=== PATIENT | male | born 1980 | race Caucasian/White ===

== ENCOUNTER 2018-02-10 21:49 | Emergency (ER) | payer BC ==
[~2018-02-10] VITALS: Ht 180.3 cm; Wt 73.7 kg
[2018-02-10 21:52] VITALS: BP 145/85; PULSE 67; RESP 18; TEMP 98.3; O2SAT 98
[2018-02-10] MEDS ORDERED: LORazepam 1 MG TAB PO ONE (22:15)
[2018-02-10] MEDS ORDERED: SODIUM CHLORIDE 0.9% FLUSH 10 ML FLUSH IV FLUSH PRN (22:15)
--- NOTE | 2018-02-10 22:24 | PD ---
HPI Chief Complaint: Abdominal Pain Time Seen by Provider: 21:56 Travel History International Travel<30 days: No Contact w/Intl Traveler<30days: No Traveled to known affect area: No History of Present Illness HPI Is a 37-year-old man who presents to the emergency department complaining of anxiety, and pain in his lower abdomen. He states that his was recently diagnosed with stage III breast cancer. He has had a lot of anxiety and nervousness since then. He states that the pain is worse when he is anxious, and thinks about all the things that need to be done. Pain is worse when he is alone and when he is in bed at night. She really had this before. No urinary symptoms. No nausea or vomiting. States he does get some cramping in his hands and his legs at times. No history of kidney stones. No history of abdominal surgery. No medical history otherwise. History Past Medical History Medical History: Denies Significant Hx Tetanus Vaccination: > 5 Years Influenza Vaccination: No Social History Alcohol Use: Yes (OCCASSIONAL) Tobacco Use: No Allergies-Medications (Allergen,Severity, Reaction): Coded Allergies: No Known Allergies (Verified Adverse Reaction, Unknown, 02/10/18) Reported Meds & Prescriptions Reported Meds & Active Scripts Active Active Prescriptions or Reported Medications Unobtainable Review of Systems Except as stated in HPI: all other systems reviewed are Neg Physical Exam Narrative GENERAL: Well-appearing 37-year-old man, no acute distress. SKIN: Focused skin assessment warm/dry. HEAD: Atraumatic. Normocephalic. EYES: Pupils equal and round. No scleral icterus. No injection or drainage. ENT: No nasal bleeding or discharge. Mucous membranes pink and moist. NECK: Trachea midline. No JVD. CARDIOVASCULAR: Regular rate and rhythm. No murmur appreciated. RESPIRATORY: No accessory muscle use. Clear to auscultation. Breath sounds equal bilaterally. GASTROINTESTINAL: Abdomen soft, non-tender, nondistended. Hepatic and splenic margins not palpable. : No hernias. MUSCULOSKELETAL: No obvious deformities. No clubbing. No cyanosis. No edema. NEUROLOGICAL: Awake and alert. No obvious cranial nerve deficits. Motor grossly within normal limits. Normal speech. Data Data Last Documented VS Vital Signs Date Time Temp Pulse Resp B/P (MAP) Pulse Ox O2 Delivery O2 Flow Rate FiO2 02/10/18 23:22 63 16 113/72 (86) 99 Room Air 02/10/18 21:52 98.3 Orders Orders Complete Blood Count With Diff (02/10/18 22:12) Comprehensive Metabolic Panel (02/10/18 22:12) Lipase (02/10/18 22:12) Urinalysis - C+S If Indicated (02/10/18 22:12) Iv Access Insert/Monitor (02/10/18 22:12) Sodium Chloride 0.9% Flush (Ns Flush) (02/10/18 22:15) Lorazepam (Ativan) (02/10/18 22:15) Labs Laboratory Tests Test 02/10/18 22:43 White Blood Count 10.3 TH/MM3 Red Blood Count 5.44 MIL/MM3 Hemoglobin 16.1 GM/DL Hematocrit 47.7 % Mean Corpuscular Volume 87.6 FL Mean Corpuscular Hemoglobin 29.6 PG Mean Corpuscular Hemoglobin Concent 33.8 % Red Cell Distribution Width 11.7 % Platelet Count 207 TH/MM3 Mean Platelet Volume 9.7 FL Neutrophils (%) (Auto) 72.8 % Lymphocytes (%) (Auto) 18.6 % Monocytes (%) (Auto) 6.7 % Eosinophils (%) (Auto) 0.8 % Basophils (%) (Auto) 1.1 % Neutrophils # (Auto) 7.5 TH/MM3 Lymphocytes # (Auto) 1.9 TH/MM3 Monocytes # (Auto) 0.7 TH/MM3 Eosinophils # (Auto) 0.1 TH/MM3 Basophils # (Auto) 0.1 TH/MM3 CBC Comment DIFF FINAL Differential Comment Urine Color YELLOW Urine Turbidity CLEAR Urine pH 6.0 Urine Specific Tyler 1.020 Urine Protein NEG mg/dL Urine Glucose (UA) NEG mg/dL Urine Ketones TRACE mg/dL Urine Occult Blood TRACE Urine Nitrite NEG Urine Bilirubin NEG Urine Urobilinogen 0.2 MG/DL Urine Leukocyte Esterase NEG Urine WBC 0-2 /hpf Urine Squamous Epithelial Cells 0-5 /hpf Microscopic Urinalysis Comment CULT NOT INDICATED Blood Urea Nitrogen 16 MG/DL Creatinine 0.90 MG/DL Random Glucose 95 MG/DL Total Protein 7.7 GM/DL Albumin 4.3 GM/DL Calcium Level 8.9 MG/DL Alkaline Phosphatase 68 U/L Aspartate Amino Transf (AST/SGOT) 15 U/L Alanine Aminotransferase (ALT/SGPT) 31 U/L Total Bilirubin 1.8 MG/DL Sodium Level 137 MEQ/L Potassium Level 3.6 MEQ/L Chloride Level 102 MEQ/L Carbon Dioxide Level 27.4 MEQ/L Anion Gap 8 MEQ/L Estimat Glomerular Filtration Rate 94 ML/MIN Lipase 156 U/L MDM Medical Decision Making Medical Screen Exam Complete: Yes Emergency Medical Condition: Yes Interpretation(s) LABS: CBC is unremarkable. CMP is unremarkable. T bili 1.8. Lipase normal. UA unremarkable. Differential Diagnosis Anxiety, renal lithiasis, enteritis, IBD, other Narrative Course Medical decision making 37-year-old man presents to the emergency department complaining of anxiety symptoms and abdominal pain. Given the nature of the symptoms, and that he has some when he is alone, when he stressed, when he likely cancer, this is almost certainly as her anxiety. I do not think is a kidney stone. Will check urine, we will check basic labs. Will offer Lorazepam. Reassess. Diagnosis Primary Impression: Anxiety Additional Impression: Abdominal pain Patient Instructions: General Instructions Departure Forms: Scripts Lorazepam (Lorazepam) 1 Mg Tab 1 MG PO Q8H Y for ANXIETY, #6 TAB 0 Refills Prov: Suman Shaw MD 02/11/18 Disposition: DISCHARGE HOME Condition: Stable Suman Shaw MD Feb 10, 2018 22:24
[2018-02-10 23:05] LABS: AUTOMATED NEUTROPHIL # 7.5 TH/MM3 (1.8-7.7); BASOPHIL # 0.1 TH/MM3 (0-0.2); BASOPHIL % 1.1 % (0.0-2.0); EOSINOPHIL # 0.1 TH/MM3 (0-0.4); EOSINOPHIL % 0.8 % (0.0-4.0); HEMATOCRIT 47.7 % (39.0-51.0); HEMOGLOBIN 16.1 GM/DL (13.0-17.0); LYMPH % 18.6 % (9.0-44.0); LYMPHOCYTE # 1.9 TH/MM3 (1.0-4.8); MEAN CELL VOLUME 87.6 FL (80.0-100.0); MEAN CORPUSCULAR HEMOGLOBIN 29.6 PG (27.0-34.0); MEAN CORPUSCULAR HGB CONC 33.8 % (32.0-36.0); MEAN PLATELET VOLUME 9.7 FL (7.0-11.0); MONO % 6.7 % (0.0-8.0); MONOCYTE # 0.7 TH/MM3 (0-0.9); NEUT % 72.8 % (16.0-70.0); PLATELET COUNT 207 TH/MM3 (150-450); RED BLOOD COUNT 5.44 MIL/MM3 (4.50-5.90); RED CELL DISTRIBUTION WIDTH 11.7 % (11.6-17.2); WHITE BLOOD COUNT 10.3 TH/MM3 (4.0-11.0)
[2018-02-10 23:06] LABS: BILIRUBIN, URINE NEG (NEG); BLOOD, URINE TRACE (NEG); GLUCOSE,URINE NEG (NEG); KETONE, URINE TRACE mg/dL (NEG); NITRITE,URINE NEG (NEG); URINE COLOR YELLOW (YELLW/STRAW); URINE LEUKOCYTE ESTERASE NEG (NEG)
[2018-02-10 23:21] LABS: CHLORIDE 102 MEQ/L (98-107); SODIUM (NA) 137 MEQ/L (136-145)
[2018-02-10 23:22] VITALS: BP 113/72; PULSE 63; RESP 16; O2SAT 99
[2018-02-10 23:25] LABS: ALBUMIN 4.3 GM/DL (3.4-5.0); BICARBONATE 27.4 MEQ/L (21.0-32.0); CALCIUM 8.9 MG/DL (8.5-10.1)
[2018-02-10 23:26] LABS: BLOOD UREA NITROGEN 16 MG/DL (7-18); GLUCOSE,RANDOM 95 MG/DL (74-106)
[2018-02-10 23:28] LABS: ALT (GPT) 31 U/L (12-78); AST (GOT) 15 U/L (15-37); GLOMERULAR FILTRATION RATE 94 ML/MIN (>89)
[2018-02-10 23:30] LABS: TOTAL BILIRUBIN ADULT 1.8 MG/DL (0.2-1.0); TOTAL PROTEIN 7.7 GM/DL (6.4-8.2)
[2018-02-10 23:31] LABS: ALKALINE PHOSPHATASE 68 U/L (45-117)
[2018-02-10 23:33] LABS: SQUAMOUS EPITHELIAL CELL URINE 0-5 /hpf (0-5); WBC, URINE 0-2 /hpf (0-5)
[2018-02-11] MEDS ORDERED: LORA1TAB12 PO (00:03)
[2018-02-11 00:43] VITALS: BP 127/68
== END 2018-02-11 00:46 | disposition home or self-care (01) ==
LOC: PHED 21:49
DX: F41.9 Anxiety disorder, unspecified (principal); R10.30 Lower abdominal pain, unspecified
CPT/HCPCS: 80053; 81001; 83690; 85025; 99283